=== PATIENT | female | born 1990 | race Caucasian/White ===

== ENCOUNTER 2021-02-26 08:00 | Outpatient (CLI) | payer OTHER ==
[2021-02-26 15:34] LABS: MUDS CUTOFF CONCENTRATIONS CUTOFF CONC BELOW:
[2021-02-26 15:41] LABS: BILIRUBIN,URINE NEGATIVE (NEGATIVE); CLARITY,URINE CLEAR (CLEAR); GLUCOSE, URINE (UA) NEGATIVE (NEGATIVE); KETONES,URINE (UA) NEGATIVE (NEGATIVE); LEUKOCYTE ESTERASE, URINE NEGATIVE (NEGATIVE); NITRITE,URINE NEGATIVE (NEGATIVE); OCCULT BLOOD,URINE NEGATIVE (NEGATIVE); PROTEIN,URINE NEGATIVE (NEGATIVE); UROBILINOGEN,URINE 0.2 (NORMAL) E.U./dL (NORMAL)
[2021-02-26 15:44] LABS: BACTERIA,URINE None Seen /HPF (None Seen); RBC,URINE 0-5 /HPF (0-5); SQUAMOUS EPITHELIAL CELL,UR RARE Squamous (<= Few); WBC,URINE 0-3 /HPF (0-5)
[2021-02-26 15:49] LABS: AMPHETAMINE SCREEN,URINE NEGATIVE (NEGATIVE); BARBITURATE SCREEN,UR NEGATIVE (NEGATIVE); BENZODIAZEPINES SCREEN, URINE NEGATIVE (NEGATIVE); COCAINE SCREEN URINE NEGATIVE (NEGATIVE); METHADONE SCREEN, URINE NEGATIVE (NEGATIVE); METHAMPHETAMINES SCREEN, URINE NEGATIVE (NEGATIVE); OPIATE SCREEN, URINE NEGATIVE (NEGATIVE); OXYCODONE SCREEN, URINE NEGATIVE (NEGATIVE); PROPOXYPHENE SCREEN, URINE NEGATIVE (NEGATIVE); THC CANNABINOID SCREEN, URINE NEGATIVE (NEGATIVE); TRICYCLIC ANTIDEPRESSANT,URINE NEGATIVE (NEGATIVE)
== END 2021-02-26 23:59 | disposition home or self-care (01) ==
LOC: LAB.WC 08:00
PROVIDERS: ATTEND Nurse Practitioner Obstetrics & Gynecology
DX: Z32.01 Encounter for pregnancy test, result positive (principal)
CPT/HCPCS: 80306; 81001; 87086

== ENCOUNTER 2021-03-13 18:40 | Outpatient (CLI) | payer OTHER ==
[2021-03-13 19:56] LABS: BASOPHILS % (AUTO) 0.4 %; EOSINOPHILS # (AUTO) 0.2 10^3/uL (0.0-0.7); EOSINOPHILS % (AUTO) 1.5 %; HCT - HEMATOCRIT 36.2 % (37.0-47.0); HGB - HEMOGLOBIN 12.3 g/dL (12.0-16.0); LYMPHOCYTES # (AUTO) 1.9 10^3/uL (1.5-3.5); LYMPHOCYTES % (AUTO) 18.9 %; MEAN CORPUSCULAR HEMOGLOBIN 30.4 pg (27.0-31.0); MEAN CORPUSCULAR VOLUME 89.6 fL (81.0-99.0); MEAN PLATELET VOLUME 11.1 fL (7.9-10.8); MONOCYTES # (AUTO) 0.4 10^3/uL (0.0-1.0); MONOCYTES % (AUTO) 4.1 %; NEUTROPHILS # (AUTO) 7.4 10^3/uL (1.5-6.6); NEUTROPHILS % (AUTO) 74.7 %; PLT - PLATELET COUNT 234 10^3/uL (130-450); RED BLOOD COUNT 4.04 10^6/uL (4.20-5.40); RED CELL DISTRIBUTION WIDTH 12.3 % (12.0-15.0); WHITE BLOOD COUNT 9.9 x10^3/uL (4.8-10.8)
--- NOTE | 2021-03-14 09:12 | Ultrasound Report ---
PROCEDURE: OB First Trimester INDICATIONS: +PREG TEST OUTSIDE/PRIOR DATING DATA: Last menstrual period (LMP): 01/06/2021. LMP-based estimated date of delivery (EVER): 10/13/2020. First dating scan (date and location): 03/13/2021. RICHY Estimated date of delivery (EVER) from first dating scan: 10/14/2020. The below data below was generated using the initial ultrasound EVER of 10/14/2020 TECHNIQUE: Real-time scanning was performed of the fetus and maternal pelvic organs, with image documentation. COMPARISON: None FINDINGS: Embryo: A live single intrauterine is present. Mean gestational sac diameter = 4.26 cm cor responding with 9 weeks 6 days. [place]-rump length = 2.58 cm corresponding with 9 weeks 2 days. Compos ite gestational age today = 9 weeks 2 days. Measurement variability in dating: +/- 4 weeks by LMP, +/- 7 days by mean sac diameter (use before 6 weeks gestation if crown-rump length not able to be measured), +/- 5 days by crown-rump length (6-12 weeks gestation). Maternal organs: Ovaries demonstrate a right corpus luteal cyst. IMPRESSION: Live single intrauterine with a composite gestational age of 9 weeks 2 days. Reviewed by: Brad Blair on 03/14/2021 9:11 AM PDT Approved by: Brad Blair on 03/14/2021 9:11 AM PDT Station ID: [id number]
[2021-03-18 10:10] LABS: HEPATITIS B SURFACE ANTIGEN NON-REACTIVE
[2021-03-18 10:13] LABS: HEPATITIS C ANTIBODY NON-REACTIVE
== END 2021-03-13 18:41 | disposition home or self-care (01) ==
LOC: DI 18:40
PROVIDERS: ATTEND Nurse Practitioner Obstetrics & Gynecology
DX: Z36.89 Encounter for other specified antenatal screening (principal)
CPT/HCPCS: 36415; 85025; 86592; 86762; 86787; 86803; 86850; 86900; 86901; 87340; 87389

== ENCOUNTER 2021-03-18 08:00 | Outpatient (CLI) | payer OTHER ==
[2021-03-18 21:47] LABS: CHLAMYDIA TRACHOMATIS DNA NEGATIVE (NEGATIVE); NEISSERIA GONORRHOEAE DNA NEGATIVE (NEGATIVE); TRICHOMONAS VAGINALIS DNA NEGATIVE (NEGATIVE)
== END 2021-03-18 23:59 | disposition home or self-care (01) ==
LOC: LAB.WC 08:00
PROVIDERS: ATTEND Advanced Practice Midwife
DX: Z11.3 Encounter for screening for infections with a predominantly sexual mode of transmission (principal)
CPT/HCPCS: 87491; 87591; 87661

== ENCOUNTER 2021-05-03 12:18 | Outpatient (CLI) | payer OTHER ==
[2021-05-07 04:01] LABS: AGE RISK DOWN SYNDROME 1 IN 721; CALC'D GESTATIONAL AGE 16.7 weeks; CIGARETTE SMOKER? NOT GIVEN; DONOR AGE: EGG RETRIEVAL NOT GIVEN; DONOR EGG NO; ESTRIOL MOM 0.85; HCG MOM 0.96; HX OF NEURAL TUBE DEFECTS NO; INHIBIN A MOM 0.98; INSULIN DEPEND DIABETIC NO; MATERNAL WEIGHT 101 lbs; MSS DOWN SYNDROME RISK <1 IN 5000; MSS3 TRISOMY 18 RISK <1 IN 5000; NUMBER OF FETUSES 1; PREV PREGNANCY DOWN SYND NO; RISK FOR ONTD 1 IN 1010
== END 2021-05-03 12:19 | disposition home or self-care (01) ==
LOC: LAB 12:18
PROVIDERS: ATTEND Advanced Practice Midwife
DX: Z34.90 Encounter for supervision of normal pregnancy, unspecified, unspecified trimester (principal); Z36.0 Encounter for antenatal screening for chromosomal anomalies
CPT/HCPCS: 81511

== ENCOUNTER 2021-05-26 08:45 | Outpatient (CLI) | payer OTHER ==
--- NOTE | 2021-05-26 10:32 | Ultrasound Report ---
PROCEDURE: OB Detailed Eval INDICATIONS: SUPERVISION OF NORMAL OUTSIDE/PRIOR DATING DATA: Last menstrual period (LMP): 01/06/2021. LMP-based estimated date of delivery (EVER): 10/13/2021. First dating scan (date and location): 03/13/2021. Estimated date of delivery (EVER) from first dating scan: 10/14/2021. The below data below was generated using the ultrasound EVER of 10/14/2021 TECHNIQUE: Real-time scanning was performed of the fetus, with image documentation and biometric measurements. COMPARISON: 03/13/2021 FINDINGS: General: A single live intrauterine gestation is present. Presentation: Variable Placenta: Placental position is posterior, without previa. Amniotic fluid index: 19.2 cm, within normal limits for gestational age. heart rate: 160 beats per minute. Maternal cervical canal: 4.2 cm long; normal length is 2.5 cm or more. biometrics: Biparietal diameter: 4.6 cm equals 20 weeks 0 days Head circumference: 17 cm equals 19 weeks 4 days Abdominal circumference: 14.6 cm equals 19 weeks 6 days Femur length: 2.8 cm equals 18 weeks 4 days Estimated gestational age from initial scan: 19 weeks 6 days. Composite gestational age from present scan: 19 weeks 3 days Estimated weight and percentile: 287 g, 20th percentile Anatomic survey: Neuro: Ventricles are normal at less than 10 mm. Cisterna magna is normal at 3-11 mm. Cerebellum i s normal in size and morphology. Nuchal skin fold: Normal at less than 6 mm between 14 and 20 weeks gestational age. Face: Nose and lips, facial profile are normal. Spine: No evidence for spina bifida. Heart: 4-chambered heart is present, with normal ventricular outflow tracts. Diaphragm: Diaphragm is intact. Stomach: Left-sided stomach is present. Kidneys: No hydronephrosis. Normal is less than 5 mm in 2nd trimester, less than 7 mm in 3rd trimester. Cord: 3 vessel cord has orthotopic insertion. Bladder: Normal in size. Extremities: All 4 extremities are visualized. An apparent right ovarian corpus luteum can be seen and measures up to 1.3 cm. IMPRESSION: Single live intrauterine . Normal interval growth compared to the prior ultrasound examination. No anatomic abnormalities are identified. Reviewed by: Jarvis Baldwin MD on 05/26/2021 9:31 AM STAR Approved by: Jarvis Baldwin MD on 05/26/2021 9:31 AM STAR Station ID: [id number]
== END 2021-05-26 08:46 | disposition home or self-care (01) ==
LOC: DI 08:45
PROVIDERS: ATTEND Advanced Practice Midwife
DX: Z34.02 Encounter for supervision of normal first pregnancy, second trimester (principal); Z36.89 Encounter for other specified antenatal screening

== ENCOUNTER 2021-07-16 08:00 | Outpatient (CLI) | payer OTHER ==
[2021-07-17 12:03] LABS: BILIRUBIN,URINE NEGATIVE (NEGATIVE); GLUCOSE, URINE (UA) NEGATIVE (NEGATIVE); KETONES,URINE (UA) NEGATIVE (NEGATIVE); LEUKOCYTE ESTERASE, URINE NEGATIVE (NEGATIVE); NITRITE,URINE NEGATIVE (NEGATIVE); OCCULT BLOOD,URINE NEGATIVE (NEGATIVE); PROTEIN,URINE NEGATIVE (NEGATIVE); UROBILINOGEN,URINE 0.2 (NORMAL) E.U./dL (NORMAL)
[2021-07-17 12:06] LABS: CLARITY,URINE CLEAR (CLEAR)
[2021-07-17 12:43] LABS: BACTERIA,URINE Rare /HPF (None Seen); RBC,URINE None Seen /HPF (0-5); SQUAMOUS EPITHELIAL CELL,UR NONE SEEN (<= Few); WBC,URINE 0-3 /HPF (0-5)
== END 2021-07-16 23:59 | disposition home or self-care (01) ==
LOC: LAB 08:00
PROVIDERS: ATTEND Nurse Practitioner Obstetrics & Gynecology
DX: R30.0 Dysuria (principal)
CPT/HCPCS: 81001; 87086

== ENCOUNTER 2021-07-24 11:31 | Outpatient (CLI) | payer OTHER ==
[2021-07-24 12:45] LABS: HCT - HEMATOCRIT 34.7 % (37.0-47.0); HGB - HEMOGLOBIN 11.5 g/dL (12.0-16.0); MEAN CORPUSCULAR HEMOGLOBIN 31.2 pg (27.0-31.0); MEAN CORPUSCULAR HGB CONC 33.1 g/dL (32.0-36.0); MEAN PLATELET VOLUME 11.4 fL (7.9-10.8); RED BLOOD COUNT 3.69 10^6/uL (4.20-5.40); RED CELL DISTRIBUTION WIDTH 13.1 % (12.0-15.0); WHITE BLOOD COUNT 10.1 x10^3/uL (4.8-10.8)
== END 2021-07-24 11:32 | disposition home or self-care (01) ==
LOC: LAB 11:31
PROVIDERS: ATTEND Nurse Practitioner Obstetrics & Gynecology
DX: Z34.90 Encounter for supervision of normal pregnancy, unspecified, unspecified trimester (principal); Z36.89 Encounter for other specified antenatal screening
CPT/HCPCS: 36415; 82950; 85027

== ENCOUNTER 2021-08-13 08:00 | Outpatient (CLI) | payer OTHER | END 2021-08-13 23:59 | disposition home or self-care (01) | LOC: LAB.WC 08:00 | PROVIDERS: ATTEND Nurse Practitioner Obstetrics & Gynecology | DX: O99.891 Other specified diseases and conditions complicating pregnancy (principal); R10.2 Pelvic and perineal pain | CPT/HCPCS: 87086 ==

== ENCOUNTER 2021-08-13 17:59 | Outpatient (CLI) | payer OTHER ==
[2021-08-13 18:54] LABS: BILIRUBIN,URINE NEGATIVE (NEGATIVE); GLUCOSE, URINE (UA) NEGATIVE (NEGATIVE); KETONES,URINE (UA) 40 mg/dL (NEGATIVE); LEUKOCYTE ESTERASE, URINE NEGATIVE (NEGATIVE); NITRITE,URINE NEGATIVE (NEGATIVE); OCCULT BLOOD,URINE SMALL (NEGATIVE); PROTEIN,URINE NEGATIVE (NEGATIVE); UROBILINOGEN,URINE 0.2 (NORMAL) E.U./dL (NORMAL)
--- NOTE | 2021-08-13 18:58 | PROVIDER PROGRESS NOTE ---
- HPI Chief Complaint: Vaginal bleeding (She presents with complaints of vaginal bleeding which started approximately 1 hour prior to presentation. She reports she was holding her child when she noticed blood similar to a "light period". She denies contractions. She denies leakage of fluid. She has not had vaginal bleeding prior previously) Current : Current EDU 10/13/21 Gestation 31 Weeks and 2 Days 3 Para 2 Vital Signs Temperature 98.8 F 08/13/21 18:12 Heart Rate 80 08/13/21 18:12 Respiratory Rate 16 08/13/21 18:12 Blood Pressure 110/76 08/13/21 18:12 Temperature 98.8 F 08/13/21 18:20 Heart Rate 80 08/13/21 18:20 Respiratory Rate 16 08/13/21 18:20 Blood Pressure 110/76 08/13/21 18:20 O2 Saturation 100 08/13/21 18:20 - Exam Generalno acute distress Abdomen soft nontender gravid Sterile speculum exam. Cervix visibly closed. Yellowish pink-tinged mucus-like discharge noted from the cervical os. - Procedures OB Procedure Performed: NST NST Procedure: NST Procedure Start Date 08/13/21 Start Time 18:08 Vibroacoustic Stimulation Used No Patient States Movement Yes Service Date of procedure: 08/13/21 Findings: baseline 150 bpm, moderate variability, accelerations 15 x 15, no decelerations contractions noted every 3 to 5 minutes. - Plan Plan: Past medical historynone Past surgical historynone 31-year-old G3, P2 at 31 weeks 2 days who presents with complaints of vaginal bleeding 1. Vaginal bleeding. Start speculum exam with yellowish mucus-like pink-tinged discharge. Consistent with infectious process. Wet prep and gonorrhea chlamydia swab sent. No active bleeding noted. Cervix visibly closed. Ul trasound ordered. O+ 2. contractions. Cervix visibly closed. Transvaginal cervical length ordered. Will start BMZ series. I/V fluids ordered. CBC. We will continue to monitor. Addendum: Ulltrasound showed placental lakes as well as a area of soft tissue in the anterior aspect of the endometrium. MFM was consulted. Discuss[facility] She recommends the following: Discharge with pelvic rest, modified bedrest and ER precautions. Patient was given betamethasone. Recommends completion of series. Will have patient return tomorrow for second betamethasone shot. Gonorrhea and committee test sent and pending. Wet prep consistent with bacterial vaginosis Flagyl Rx sent.
[2021-08-13 19:02] LABS: BACTERIA,URINE None Seen /HPF (None Seen); CLARITY,URINE CLEAR (CLEAR); RBC,URINE 0-5 /HPF (0-5); SQUAMOUS EPITHELIAL CELL,UR RARE Squamous (<= Few); WBC,URINE 0-3 /HPF (0-5)
[2021-08-13 19:20] LABS: RUPTURE OF MEMBRANES PLUS NEGATIVE (NEGATIVE)
[2021-08-13] MEDS ORDERED: BETAMETHASONE 30 MG/5 ML VIAL IM ONE (19:34)
[2021-08-13] MEDS ORDERED: LACTATED RINGERS 500 ML IV ONE (19:36)
[2021-08-13 20:30] LABS: BASOPHILS % (AUTO) 0.2 %; EOSINOPHILS # (AUTO) 0.2 10^3/uL (0.0-0.7); HCT - HEMATOCRIT 35.7 % (37.0-47.0); HGB - HEMOGLOBIN 11.7 g/dL (12.0-16.0); LYMPHOCYTES # (AUTO) 2.1 10^3/uL (1.5-3.5); LYMPHOCYTES % (AUTO) 16.9 %; MEAN CORPUSCULAR HEMOGLOBIN 30.7 pg (27.0-31.0); MEAN CORPUSCULAR HGB CONC 32.8 g/dL (32.0-36.0); MEAN CORPUSCULAR VOLUME 93.7 fL (81.0-99.0); MEAN PLATELET VOLUME 11.9 fL (7.9-10.8); MONOCYTES # (AUTO) 0.6 10^3/uL (0.0-1.0); MONOCYTES % (AUTO) 4.6 %; NEUTROPHILS # (AUTO) 9.2 10^3/uL (1.5-6.6); NEUTROPHILS % (AUTO) 76.1 %; PLT - PLATELET COUNT 172 10^3/uL (130-450); RED BLOOD COUNT 3.81 10^6/uL (4.20-5.40); RED CELL DISTRIBUTION WIDTH 13.4 % (12.0-15.0); WHITE BLOOD COUNT 12.1 x10^3/uL (4.8-10.8)
[2021-08-13 21:50] LABS: CHLAMYDIA TRACHOMATIS DNA NEGATIVE (NEGATIVE); NEISSERIA GONORRHOEAE DNA NEGATIVE (NEGATIVE); TRICHOMONAS VAGINALIS DNA NEGATIVE (NEGATIVE)
[2021-08-13 22:00] VITALS: BP 112/76
--- NOTE | 2021-08-13 22:13 | Ultrasound Report ---
PROCEDURE: OB Limited INDICATIONS: vaginal bleeding OUTSIDE/PRIOR DATING DATA: Last menstrual period (LMP): 01/06/2021. LMP-based estimated date of delivery (EVER): 10/13/2020. First dating scan (date and location): 03/13/2021. Estimated date of delivery (EVER) from first dating scan: 10/14/2021. The below data below was generated using the ultrasound derived EVER of 10/14/2021. TECHNIQUE: Real-time scanning was performed of the fetus, with image documentation. COMPARISON: 05/26/2021, 03/13/2021. FINDINGS: A single living intrauterine gestation is present. Presentation: Vertex Placenta: Placental position is posterior, without previa. Amniotic fluid index: 18.5 cm, within normal limits for gestational age. Largest pocket measures 6.2 cm. heart rate: 152 beats per minutes. Maternal cervical canal: 4.1 cm long; normal length is 2.5 cm or more. Estimated gestational age from initial scan: 31 weeks 1 day. There are a few hypoechoic collections within the placenta consistent with venous lakes. No definite periplacental fluid collections to suggest abruption. Along the ventral uterine wall, there are 2 adjacent lobulated masslike lesions contiguous with the m yometrium indenting on the gestational sac. These measure up to 3.1 x 2.2 x 3.2 cm and 3.8 x 1.9 x 5. 6 cm. These are heterogeneous in appearance with internal hypoechoic regions. IMPRESSION: 1. Single living intrauterine demonstrated in vertex position. 2. Cervix appears closed. 3. Amniotic fluid index within normal limits. 4. No periplacental fluid collections to suggest abruption. 5. Lobulated masslike lesions along the positional sac anteriorly contiguous with the myometrium. The findings are nonspecific and the differential includes uterine fibroids or sequelae of a prior gesta tional hemorrhage among other etiologies. Recommend short-term follow-up ultrasound to demonstrate st ability. Reviewed by: Robert Forrest MD on 08/13/2021 10:12 PM PST Approved by: Robert Forrest MD on 08/13/2021 10:12 PM PST Station ID: [id number]
== END 2021-08-13 21:35 | disposition home or self-care (01) ==
LOC: WFO 17:59 → FBP 18:01 → WFO 21:35
PROVIDERS: ATTEND Obstetrics & Gynecology
DX: O43.893 Other placental disorders, third trimester (principal); Z3A.31 31 weeks gestation of pregnancy; O99.891 Other specified diseases and conditions complicating pregnancy; N89.8 Other specified noninflammatory disorders of vagina; R10.2 Pelvic and perineal pain
CPT/HCPCS: 36415; 59025; 76815; 81001; 84112; 85025; 87086; 87210; 87491; 87591; 87661; 96360; 96372; 99214; J7120; 87081

== ENCOUNTER 2021-08-14 19:58 | Outpatient (CLI) | payer OTHER ==
[2021-08-14] MEDS ORDERED: BETAMETHASONE 30 MG/5 ML VIAL IM ONE ×2 (20:09→20:33)
--- NOTE | 2021-08-14 20:27 | PROVIDER PROGRESS NOTE ---
- HPI Chief Complaint: Other (Patient presents for follow-up of her vaginal bleeding. She reports her bleeding has now essentially resolved with just brownish discharge. She denies contractions or leakage of fluid. She notes positive movement. She does report a headache earlier today which resolved with Tylenol.) Current : 31 weeks 3 days - Procedures OB Procedure Performed: NST Diagnosis/Indication for NST: Other (Vaginal bleeding in ) NST Procedure: NST Procedure Start Time 2023 Stop Time 2045 baseline 140, accelerations 10x10 , no decelerations, rare contractions( 1 in 20 mins) NST reactive and reassuring. Service Date of procedure: 08/14/21 - Plan Plan: 31-year-old G3, P2 at 31 weeks 2 days who presents for follow-up of vaginal bleeding. 1. Vaginal bleeding- resolved. Gonorrhea and Chlamydia were negative. On Flagyl for BV. Betamethasone No. 2 given today. Of note - Ulltrasound showed placental lakes as well as a area of soft tissue in the anterior aspect of the endometrium. MFM was consulted. Discussed with Dr. Agnieszka Jane with [facility]. She recommends the following: Discharge with pelvic rest, modified bedrest and ER precautions. Patient was given betamethasone. Recommends completion of series.
[2021-08-14 20:52] VITALS: BP 116/72
== END 2021-08-14 21:05 | disposition home or self-care (01) ==
LOC: FBP 19:58 → UNDOADMIN 19:58 → WFO 19:58 → UNDODISIN 21:05 → EDSTATUS 08-16 16:17
PROVIDERS: ATTEND Obstetrics & Gynecology
DX: O46.93 Antepartum hemorrhage, unspecified, third trimester (principal); O23.593 Infection of other part of genital tract in pregnancy, third trimester; B96.89 Other specified bacterial agents as the cause of diseases classified elsewhere; O43.893 Other placental disorders, third trimester; Z3A.31 31 weeks gestation of pregnancy
CPT/HCPCS: 59025; 96372; 99213

== ENCOUNTER 2021-08-27 14:58 | Outpatient (CLI) | payer OTHER ==
--- NOTE | 2021-08-27 16:59 | Ultrasound Report ---
PROCEDURE: OB F/U or Repeat INDICATIONS: THIRD TRIMESTER VAGINAL BLEEDING OUTSIDE/PRIOR DATING DATA: Last menstrual period (LMP): 01/06/2021. LMP-based estimated date of delivery (EVER): 10/13/2020. First dating scan (date and location): 03/13/2021. Estimated date of delivery (EVER) from first dating scan: 10/14/2021. TECHNIQUE: Real-time scanning was performed of the fetus, with image documentation and biometric measurements. Endovaginal scanning: No COMPARISON: None. FINDINGS: General: A single living intrauterine gestation is present. Presentation: Vertex Placenta: Placental position is posterior, without previa. Amniotic fluid index: 18.9 cm heart rate: 143 beats per minute. Maternal cervical canal: 3 cm long; normal length is 2.5 cm or more. No change in nonspecific soft tissue lobulated focus within the anterior uterine wall measuring 6.8 x 3.6 x 4.1 cm. biometrics: Biparietal diameter: 74 mm; 29 weeks 5 days Head circumference: 27 mm; 31 weeks 4 days Abdominal circumference: 279 mm; 32 weeks 0 days Femur length: 57 mm; 30 weeks 2 days Estimated gestational age from initial scan: 33 weeks 1 day Composite gestational age from present scan: 30 weeks 6 days Estimated weight and percentile: 1723 g, which is at the 5th percentile for gestational age Measurement variability in biometric dating: +/- 10 days from 12-20 weeks gestation, +/- 2 weeks from 20-30 weeks gestation, +/- 3 weeks at 30 weeks gestation or more. Other: Survey of anatomy currently includes normal chest/diaphragm, stomach/abdomen, bilateral renal regions, and urinary bladder/pelvis. IMPRESSION: 1. Single living intrauterine gestation. 2. Estimated weight is at the 5th percentile for gestational age. 3. No change in anterior uterine focus. Reviewed by: Jacqueline Almanza MD on 08/27/2021 4:57 PM PST Approved by: Jacqueline Almanza MD on 08/27/2021 4:57 PM PST Station ID: [id number]
== END 2021-08-27 14:59 | disposition home or self-care (01) ==
LOC: DI 14:58
PROVIDERS: ATTEND Nurse Practitioner Obstetrics & Gynecology
DX: O46.93 Antepartum hemorrhage, unspecified, third trimester (principal); Z3A.30 30 weeks gestation of pregnancy

== ENCOUNTER 2021-09-10 14:44 | Outpatient (CLI) | payer OTHER ==
--- NOTE | 2021-09-10 17:20 | PROCEDURE REPORT ---
- HPI Diagnosis/Indication for NST: Intrauterine growth restriction Vital Signs Temperature 36.9 C 09/10/21 15:04 Heart Rate 66 09/10/21 15:04 Respiratory Rate 16 09/10/21 15:04 Blood Pressure 124/80 09/10/21 15:04 Temperature 36.9 C 09/10/21 15:04 Heart Rate 66 09/10/21 15:04 Respiratory Rate 16 09/10/21 15:04 Blood Pressure 124/80 09/10/21 15:04 O2 Saturation - NST Procedure NST Procedure Start Time 20:23 Stop Time 20:45 - Results and Plan Findings/Impression: Gisselle presents to [facility] for NST and BPP with doppler and JASON secondary to suspected IUGR on last ultrasound with EFW measuring 5%tile. Her MFM consult has been initiated however she has not been able to schedule with them yet due to in surance barriers. Working with clinic RN to expedite this referral. NST performed 09/10/2021 NST read 09/10/2021 NST reactive. FHR baseline 140, moderate variability, + accels, no decels No contractions appreciated via tocometry BPP 03/12 for absence of respirations. JASON WNL @ 17.1 Cord Dopplers WNL. Assessment: 31yo @ 35.2wks gestation by LMP c/w 9.2wk U/S Suspected IUGR BPP 03/12 --05/14 (with NST) Hx preeclampsia - normotensive now and taking ASA daily. Plan: Pt released home with precautions. Will return this week for repeat NST and BPP. Will initiate twice weekly NSTs and BPP with JASON and cord dopplers and await further recommendations from MFM for surveillance and plan of care for timing of delivery. Pt verbalized understanding and agrees to above plan. She denies further questions or concerns at this time. FINAL DIAGNOSIS: Intrauterine growth restriction
--- NOTE | 2021-09-10 18:07 | Ultrasound Report ---
PROCEDURE: OB Biophysical Profile INDICATIONS: Small for gestational age fetus OUTSIDE/PRIOR DATING DATA: Last menstrual period (LMP): 01/06/2021. LMP-based estimated date of delivery (EVER): 10/13/2020. First dating scan (date and location): 03/13/2021. Estimated date of delivery (EVER) from first dating scan: 10/14/2021. The below data below was generated using the study generated EVER of 10/14/2021 TECHNIQUE: Real-time scanning was performed of the fetus, with image documentation and biometric saba surements. Biophysical profile was also obtained. COMPARISON: 08/13/2021, 08/27/2021. FINDINGS: General: A single living intrauterine gestation is present. Presentation: Vertex Placenta: Placental position is posterior, without previa. Amniotic fluid index: 17.6 cm, normal for gestational age. heart rate: 126 beats per minute. Maternal cervical canal: 3.54 cm long; normal length is 2.5 cm or more. Estimated gestational age from initial scan: 35 weeks, 1 day Biophysical profile: Tone: 2 points. Movement: 2 points. Respiration: 0 points. Largest pocket of fluid: 2 points. IMPRESSION: 1. Single live anterior with fetus in vertex presentation. heart rate is 126 bpm. [place] amount of amniotic fluid. 2. biophysical profile score measures 6 out of 8 with no convincing respiration is seen d uring the study. Reviewed by: Huey Blankenship MD on 09/10/2021 6:05 PM PST Approved by: Huey Blankenship MD on 09/10/2021 6:05 PM PST Station ID: [id number]
[2021-09-10 18:57] VITALS: BP 124/80
== END 2021-09-10 17:32 | disposition home or self-care (01) ==
LOC: WFO 14:44 → FBP 14:45 → WFO 17:32
PROVIDERS: ATTEND Nurse Practitioner Obstetrics & Gynecology
DX: O36.5930 Maternal care for other known or suspected poor fetal growth, third trimester, not applicable or unspecified (principal); Z3A.35 35 weeks gestation of pregnancy; Z87.59 Personal history of other complications of pregnancy, childbirth and the puerperium; Z79.82 Long term (current) use of aspirin
CPT/HCPCS: 59025; 99214

== ENCOUNTER 2021-09-17 13:45 | Outpatient (CLI) | payer OTHER | END 2021-09-17 23:59 | disposition home or self-care (01) | LOC: LAB 13:45 | PROVIDERS: ATTEND Nurse Practitioner Obstetrics & Gynecology | DX: Z36.85 Encounter for antenatal screening for Streptococcus B (principal) | CPT/HCPCS: 87797 ==

== ENCOUNTER 2021-09-17 14:20 | Outpatient (CLI) | payer OTHER ==
--- NOTE | 2021-09-17 16:54 | Ultrasound Report ---
PROCEDURE: OB Biophysical Profile INDICATIONS: FETUS SMALL FOR GESTATIONAL AGE OUTSIDE/PRIOR DATING DATA: Last menstrual period (LMP): 01/06/2021. LMP-based estimated date of delivery (EVER): 10/13/2020. First dating scan (date and location): 03/13/2021. Estimated date of delivery (EVER) from first dating scan: 10/14/2020. The below data below was generated using the ultrasound generated EVER of 10/14/2020 TECHNIQUE: Real-time scanning was performed of the fetus, with image documentation and biometric saba surements. Biophysical profile was also obtained. Endovaginal scanning: Not performed COMPARISON: Prior sonographic exams, most recent 09/10/2021 FINDINGS: General: A single living intrauterine gestation is present. Presentation: Vertex Placenta: Placental position is posterior, without previa. Amniotic fluid index: 20.6 cm. heart rate: 135 beats per minute. Maternal cervical canal: 3.6 cm long; normal length is 2.5 cm or more. Biophysical profile: Tone: 2 points. Movement: 2 points. Respiration: 2 points. Largest pocket of fluid: 2 points. Largest pocket is 6.5 cm. Cord Doppler systolic/diastolic ratios: 2.7 near the placenta, 3.1 and the mid segment, and 2.6 at th e umbilicus. IMPRESSION: Single live intrauterine gestation. Estimated date of delivery is 10/14/2020. heart rate 1 35 bpm. Amniotic fluid index 20.6 cm. Biophysical profile 8/8. Normal cord systolic/diastolic ratios. Reviewed by: Eliud Mac MD on 09/17/2021 4:53 PM PST Approved by: Eliud Mac MD on 09/17/2021 4:53 PM PST Station ID: [id number]
== END 2021-09-17 14:21 | disposition home or self-care (01) ==
LOC: DI 14:20
PROVIDERS: ATTEND Nurse Practitioner Obstetrics & Gynecology
DX: O36.5990 Maternal care for other known or suspected poor fetal growth, unspecified trimester, not applicable or unspecified (principal); Z3A.00 Weeks of gestation of pregnancy not specified

== ENCOUNTER 2021-09-17 14:42 | Outpatient (CLI) | payer OTHER ==
[2021-09-17 15:02] VITALS: BP 118/79
--- NOTE | 2021-09-17 16:17 | PROCEDURE REPORT ---
- HPI Diagnosis/Indication for NST: Other (IUGR) Current EDU 10/13/21 Gestation 36 Weeks and 2 Days 3 Para 2 Vital Signs Temperature 97.7 F 09/17/21 14:35 Heart Rate 83 09/17/21 14:35 Respiratory Rate 17 09/17/21 14:35 Blood Pressure 118/79 09/17/21 14:35 O2 Saturation 100 09/17/21 14:35 Temperature 97.7 F 09/17/21 14:35 Heart Rate 83 09/17/21 14:35 Respiratory Rate 17 09/17/21 14:35 Blood Pressure 118/79 09/17/21 14:35 O2 Saturation 100 09/17/21 14:35 - NST Procedure NST Procedure Start Date 09/17/21 Start Time 14:31 Stop Time 15:32 Vibroacoustic Stimulation Used No Patient States Movement Yes - Results and Plan Findings/Impression: heart rate baseline-140 beats per minutes Moderate variability Accelerations- 15x15 Decelerations none Contractions - rare NST reactive and reassuring BBP 05/12
== END 2021-09-17 16:30 | disposition home or self-care (01) ==
LOC: WFO 14:42 → FBP 14:46 → WFO 16:30
PROVIDERS: ATTEND Obstetrics & Gynecology
DX: O36.5930 Maternal care for other known or suspected poor fetal growth, third trimester, not applicable or unspecified (principal); Z3A.36 36 weeks gestation of pregnancy; Z36.85 Encounter for antenatal screening for Streptococcus B
CPT/HCPCS: 59025; 87797

== ENCOUNTER 2021-09-24 14:13 | Outpatient (CLI) | payer OTHER ==
[2021-09-24 14:34] VITALS: BP 115/80
--- NOTE | 2021-09-24 15:19 | PROCEDURE REPORT ---
- HPI Diagnosis/Indication for NST: Intrauterine growth restriction Current EDU 10/13/21 Gestation 37 Weeks and 2 Days 3 Para 2 Vital Signs Temperature 98.4 F 09/24/21 14:26 Heart Rate 86 09/24/21 14:26 Respiratory Rate 16 09/24/21 14:26 Blood Pressure 118/86 H 09/24/21 14:26 Temperature 98.4 F 09/24/21 14:32 Heart Rate 78 09/24/21 14:32 Respiratory Rate 16 09/24/21 14:32 Blood Pressure 115/80 09/24/21 14:33 O2 Saturation - NST Procedure NST Procedure Start Date 09/24/21 Start Time 14:22 Stop Time 15:01 Vibroacoustic Stimulation Used No Patient States Movement Yes - Results and Plan Findings/Impression: Patient is a at 37 weeks 2 days gestation here for scheduled NST. NST Performed 09/24/2021 NST Read 10/04/2021 FHT: 135 beats per baseline, moderate variability, accelerations present, no decelerations. [place]: 8 minutes. Diagnosis 37 weeks gestation IUGR Reactive NST
== END 2021-09-24 14:45 | disposition home or self-care (01) ==
LOC: WFO 14:13 → FBP 14:17 → WFO 14:45
PROVIDERS: ATTEND Obstetrics & Gynecology
DX: O36.5930 Maternal care for other known or suspected poor fetal growth, third trimester, not applicable or unspecified (principal); Z3A.37 37 weeks gestation of pregnancy
CPT/HCPCS: 59025

== ENCOUNTER 2021-09-24 14:55 | Outpatient (CLI) | payer OTHER ==
--- NOTE | 2021-09-24 21:01 | Ultrasound Report ---
PROCEDURE: OB Biophysical Profile INDICATIONS: FETUS SMALL FOR GESTATIONAL AGE OUTSIDE/PRIOR DATING DATA: Last menstrual period (LMP): 01/06/2021. LMP-based estimated date of delivery (EVER): 10/13/2021. First dating scan (date and location): 03/13/2021. Estimated date of delivery (EVER) from first dating scan: 10/14/2021. The below data below was generated using the ultrasound generated EVER of 10/14/2021 TECHNIQUE: Real-time scanning was performed of the fetus, with image documentation and biometric saba surements. Biophysical profile was also obtained. Endovaginal scanning: Not performed COMPARISON: 09/17/2021, 09/10/2021, 08/27/2021 FINDINGS: General: A single living intrauterine gestation is present. Presentation: Vertex Placenta: Placental position is posterior, without previa. Amniotic fluid index: 15.8 cm, normal for gestational age. heart rate: 131 beats per minute. Estimated gestational age from initial scan: 37 weeks 1 day. Biophysical profile: Tone: 2 points. Movement: 2 points. Respiration: 0 points. Largest pocket of fluid: 2 points (4.6 cm). Umbilical artery Doppler: 1.6 at the placenta (not well seen due to posterior placental position), 3 .1 at the mid segment, 3.8 at the umbilicus. IMPRESSION: Single live intrauterine gestation. Normal amniotic fluid index. Biophysical profile score 6/8 with no convincing respirations identified by the central supply tech. Umbilical artery Doppler ratios as described above. Reviewed by: Eliud Mac MD on 09/24/2021 9:00 PM PST Approved by: Eliud Mac MD on 09/24/2021 9:00 PM PST Station ID: [id number]
== END 2021-09-24 14:56 | disposition home or self-care (01) ==
LOC: DI 14:55
PROVIDERS: ATTEND Nurse Practitioner Obstetrics & Gynecology
DX: O36.5930 Maternal care for other known or suspected poor fetal growth, third trimester, not applicable or unspecified (principal); Z3A.37 37 weeks gestation of pregnancy

== ENCOUNTER 2021-09-25 21:29 | Outpatient (CLI) | payer OTHER | END 2021-09-25 21:30 | disposition critical access hospital (66) | LOC: EMS 21:29 | DX: Z34.80 Encounter for supervision of other normal pregnancy, unspecified trimester (principal) | CPT/HCPCS: A0425; A0429 ==

== ENCOUNTER 2021-09-25 21:51 | Inpatient (IN) | payer OTHER ==
[2021-09-25] MEDS ORDERED: OXYTOCIN/SODIUM CHLORIDE 500 ML IV ONE (22:06)
[2021-09-25] MEDS ORDERED: miSOPROStoL 200 MCG TABLET ONE (22:06)
[2021-09-25] MEDS ORDERED: OXYTOCIN 10 UNIT/ML VIAL ONE (22:12)
[2021-09-25] MEDS ORDERED: SIMETHICONE CHEW 80 MG TABLET PO PRN (22:15)
[2021-09-25] MEDS ORDERED: TRANEXAMIC ACID IN NACL 1,000 MG/100 ML BAG IV PRN (22:16)
[2021-09-25] MEDS ORDERED: LIDOCAINE-MPF 1% 30 ML VIAL ID PRN (22:16)
[2021-09-25] MEDS ORDERED: KETOROLAC 30 MG/ML VIAL ONE (22:16)
[2021-09-25] MEDS ORDERED: miSOPROStoL 200 MCG TABLET PR ONE (22:16)
[2021-09-25] MEDS ORDERED: OXYTOCIN 10 UNIT/ML VIAL IM PRN (22:16)
[2021-09-25] MEDS ORDERED: TERBUTALINE 1 MG/ML VIAL SUBQ PRN (22:16)
[2021-09-25] MEDS ORDERED: SODIUM CHLORIDE FLUSH 0.9% 10 ML SYRINGE IVP PRN (22:16)
[2021-09-25] MEDS ORDERED: METHYLERGONOVINE 0.2 MG/ML VIAL IM PRN (22:16)
[2021-09-25] MEDS ORDERED: CARBOPROST TROMETHAMINE 250 MCG/ML AMP IM PRN (22:16)
[2021-09-25] MEDS ORDERED: OXYTOCIN/SODIUM CHLORIDE 500 ML IV PRN (22:16)
[2021-09-25] MEDS ORDERED: fentaNYL 100 MCG/2 ML VIAL IVP PRN (22:16)
--- NOTE | 2021-09-25 22:30 | HISTORY & PHYSICAL EXAMINATION ---
History and Physical - History and Physical HPI: 31-year-old G3 now P2 who presented at 37 weeks 3 days gestation who presented by EMS complaining of rupture of membranes. Membranes ruptured shortly before arrival. She was not complaining of pressure urgency, but after the bedside nurse checked and found to be complete, she began pushing involuntarily and delivered precipitously. Please see delivery note for details. All other symptoms reviewed and were negative except per HPI. Course LMP 01/06/2021 EVER by 9.2wk U/S 10/14/2020 (c/w LMP dating) FINAL EVER 10/13/2020 by LMP O pos/Rubella immune VZV:immune Genetic testing: Quad- NEGATIVE FAS: WNL. Posterior placenta, no previa. Size c/w dating EFW 20%tile. 3VC. 08/27/2021 f/u Placenta posterior without previa. No change in nonspecific soft tissue lobulated focus within the aneteior uterine wall measuring 6.8 x 3.6 x 4.1cm. EFW 5%tile. -MFM consult initiated secondary to concern for IUGR. Glucola 120 Influenza: 07/16/2021 TDAP: 07/16/2021 COVID-19 vaccine: 1st dose 06/28/21 GBS 09/17/2021 POSITIVE HSV: denies self and partner Breast pump Rx 07/16 MOD: . : Eliud. 9yo [place], 2.5yo [place]. pp contraception: pap: 07/2020-wnl per pt PMH Anxiety Migraines PSH Unremarkable OB History G3, P3 1. 01/14/2013, 39 weeks, , preeclampsia, 7 pounds 3 ounces 2. 09/12/2018, 37 weeks, , SROM, 6 pounds 3. Current SH Denies tobacco, alcohol, drugs Family History Mother: Arthritis Father: Drug abuse Maternal grandfather: Lung cancer Paternal grandmother: Colon cancer Allergies No known drug allergies Medications vitamins Citalopram Magnesium Low-dose aspirin Physical exam: Blood pressure 125/70, pulse 81, SPO2 100% General: Alert, oriented, no acute distress Head: Normal cephalic atraumatic Eyes: PERRLA, extraocular motions intact. Respiratory: Normal rate of respiration. No accessory muscle use, normal respiratory effort. Cardiovascular: Regular rate and rhythm Abdomen: Soft, nontender Extremities: Normal range of motion Neuro: Oriented x3. Normal movements Psych: Appropriate mood and affect. Normal judgment and insight Plan 31-year-old at 37 weeks 3 days gestation in term labor 1. Term labor: Admit to L&D, admit labs -Cervix found to be complete upon initial check with spontaneous rupture mem bransilvana. Patient precipitously delivered. See delivery note for details. 2. IUGR 3. Anxiety -Continue home Celexa
--- NOTE | 2021-09-25 22:37 | DELIVERY NOTE ---
Delivery Note - Labor Labor: positive: Spontaneous - Delivery Method Delivery Method: positive: Spontaneous vaginal delivery - Presentation Presentation: positive: Vertex - Nuchal Cord Nuchal Cord: positive: None - Anesthetic Anesthetic Type: - Amniotic Fluid Description Amniotic Fluid Description: positive: Clear - Episiotomy Type Episiotomy Type: positive: None - Laceration Laceration: positive: Labial (left) - Delivery Outcome Delivery Outcome: positive: Livebirth - [place]: positive: Placed in direct skin contact with mother, [place] used sex: positive: Female - Cord Cord: positive: 3 vessels - Placenta Placenta: positive: Intact - Estimated Blood Loss Estimated Blood Loss (in cc): 200 - Post Delivery Events Post Delivery Events: positive: No post delivery events - Delivery Comments (Free Text/Narrative) Delivery Comments (Free Text/Narrative): Preoperative Diagnoses 31-year-old G3, P2 37 weeks gestation Term labor/SROM IUGR Postoperative Diagnoses Same Delivered Delivery Summary: Patient arrived by EMS and was checked in triage found to be complete and grossly ruptured. Although she not feel the urge to push, she began pushing involuntarily and delivered precipitously in bed with the aid of the bedside nurse. Upon maternal pushing the head was delivered atraumatically followed by the anterior shoulder, posterior shoulder, then the remainder of the infant's body. A loose cord was wrapped around the shoulder. A female infant was delivered with APGARS of 8 at 1 minute and 9 at 5 minutes. The infant was placed on its mother's chest . After the cord finished pulsating, the umbilical cord was clamped times two and cut. 10 units of oxytocin were given IM as she did not have an IV. The placenta delivered intact with three vessel cord. Placenta was sent to pathology.. Uterine massage was performed until uterus was deemed firm. Upon inspection the perineum, a left labial laceration was noted and became hemostatic with pressure. Upon re-inspection the patient was hemostatic. Uterus again massaged and found to be firm. Needle and sponge counts were correct. Patient was stable and allowed to recover in L&D room. was stable and remained in room with mother. weight is pending at this time.
[2021-09-25] MEDS ORDERED: SODIUM CHLORIDE FLUSH 0.9% 10 ML SYRINGE IVP SCH (23:00)
[2021-09-25] MEDS ORDERED: LACTATED RINGERS 1,000 ML IV SCH ×2 (23:00)
[2021-09-25] MEDS ORDERED: KETOROLAC 30 MG/ML VIAL IVP SCH (23:00)
[2021-09-25 23:12] LABS: BASOPHILS # (AUTO) 0.1 10^3/uL (0.0-0.1); BASOPHILS % (AUTO) 0.3 %; EOSINOPHILS # (AUTO) 0.1 10^3/uL (0.0-0.7); HCT - HEMATOCRIT 38.3 % (37.0-47.0); HGB - HEMOGLOBIN 12.8 g/dL (12.0-16.0); LYMPHOCYTES # (AUTO) 1.3 10^3/uL (1.5-3.5); MEAN CORPUSCULAR HGB CONC 33.4 g/dL (32.0-36.0); MEAN CORPUSCULAR VOLUME 92.7 fL (81.0-99.0); MEAN PLATELET VOLUME 12.8 fL (7.9-10.8); MONOCYTES # (AUTO) 0.7 10^3/uL (0.0-1.0); MONOCYTES % (AUTO) 4.8 %; NEUTROPHILS # (AUTO) 12.4 10^3/uL (1.5-6.6); NEUTROPHILS % (AUTO) 84.6 %; PLT - PLATELET COUNT 156 10^3/uL (130-450); RED BLOOD COUNT 4.13 10^6/uL (4.20-5.40); RED CELL DISTRIBUTION WIDTH 14.6 % (12.0-15.0); WHITE BLOOD COUNT 14.6 x10^3/uL (4.8-10.8)
[2021-09-25] MEDS: ACETAMINOPHEN 500 MG TABLET PO SCH (23:23)
[2021-09-25] MEDS: DOCUSATE SODIUM 100 MG CAPSULE PO PRN (23:24)
[2021-09-26] MEDS: IBUPROFEN 600 MG TABLET PO SCH ×3 (05:29→17:03)
--- NOTE | 2021-09-26 07:53 | Discharge Plan ---
Discharge Plan Problem Reviewed?: Yes Disposition: Home, Self Care Condition: Good Diet: Regular Activity Restrictions: Additional Comments Shower Restrictions: No Driving Restrictions: No Instruction Topics: Vaginal After No Smoking: If you smoke, Please STOP! Call for help. Follow-up with: Kathleen Pope MD [Provider Admit Priv/Credential] -
--- NOTE | 2021-09-26 07:55 | PROVIDER PROGRESS NOTE ---
Subjective - Prog Note Date Prog Note Date: 09/26/21 Prog Note Time: 07:55 - Subjective Pt reports feeling: Improved Subjective: Subjective Patient reports she is doing well. Lochia appropriate. Denies heavy bleeding. Ambulating. Pelvic and abdominal pain well-controlled. Tolerating oral intake. Diet: Regular. Voiding without difficulty. Passing flatus. Denies BM. Patient is bonding with baby in room Breast feeding going well. Supplementing with formula Denies feeling lightheaded, dizzy or excessively fatigued. Objective General: Alert, oriented, no apparent distress. Cardiovascular: Regular rate. Regular rhythm. Lungs: No increased work of breathing. Abdomen: Uterus firm. Below umbilicus. Extremities: Normal pedal pulses. No edema. Assessment and Plan day 1. -Routine care -Anticipate discharge tomorrow Objective - Vital Signs/Intake & Output Vital Signs: Vital Signs x48h Temp Pulse Resp BP Pulse Ox 09/26/21 05:44 98.1 F 85 17 129/91 H 100 09/26/21 00:52 98.2 F 76 17 104/67 100 Intake & Output: Intake & Output 09/23/21 09/24/21 09/25/21 09/26/21 23:59 23:59 23:59 23:59 Intake Total 429.65 440 Output Total 0 150 Balance 429.65 290 - Lab Results Fish Bones: 09/25/21 23:04 Other Labs: Lab Results x24hrs 09/25/21 09/25/21 Range/Units 23:04 23:04 WBC 14.6 H (4.8-10.8) x10^3/uL RBC 4.13 L (4.20-5.40) 10^6/uL Hgb 12.8 (12.0-16.0) g/dL Hct 38.3 (37.0-47.0) % MCV 92.7 (81.0-99.0) fL MCH 31.0 (27.0-31.0) pg MCHC 33.4 (32.0-36.0) g/dL RDW 14.6 (12.0-15.0) % Plt Count 156 (130-450) 10^3/uL MPV 12.8 H (7.9-10.8) fL Neut # (Auto) 12.4 H (1.5-6.6) 10^3/uL Lymph # (Auto) 1.3 L (1.5-3.5) 10^3/uL [place] # (Auto) 0.7 (0.0-1.0) 10^3/uL Eos # (Auto) 0.1 (0.0-0.7) 10^3/uL Baso # (Auto) 0.1 (0.0-0.1) 10^3/uL Absolute Nucleated RBC 0.00 x10^3/uL Nucleated RBC % 0.0 /100WBC Blood Type O POSITIVE Antibody Screen NEGATIVE
[2021-09-26] MEDS: ACETAMINOPHEN 500 MG TABLET PO SCH ×2 (08:48→17:02)
[2021-09-26] MEDS: DOCUSATE SODIUM 100 MG CAPSULE PO PRN ×2 (08:48→21:40)
[2021-09-26] MEDS: CITALOPRAM 10 MG TABLET PO SCH (08:51)
[2021-09-27] MEDS: IBUPROFEN 600 MG TABLET PO SCH ×2 (00:36→09:05)
[2021-09-27] MEDS: ACETAMINOPHEN 500 MG TABLET PO SCH ×2 (00:36→09:05)
--- NOTE | 2021-09-27 08:23 | DISCHARGE SUMMARY ---
Discharge Summary Admit Date: 09/25/21 Discharge Date: 09/27/21 Discharging Provider: Jono Pace MD Code Status: Attempt Resuscitation Condition at Discharge: Good Discharge Disposition: 01 Home, Self Care - DIAGNOSES Admission Diagnoses: Term labor 37 weeks gestation IUGR Anxiety Discharge Diagnoses with Status of Each Condition: Term labor: Delivered 37 weeks gestation: Delivered IUGR Anxiety: Stable Small for gestational age - HPI History of Present Illness: Subjective Patient reports she is doing well. Lochia appropriate. Denies heavy bleeding. Ambulating. Pelvic and abdominal pain well-controlled. Tolerating oral intake. Diet: Regular. Voiding without difficulty. Passing flatus. . Patient is bonding with baby in room Breast feeding going well. Denies feeling lightheaded, dizzy or excessively fatigued. Objective General: Alert, oriented, no apparent distress. Cardiovascular: Regular rate. Regular rhythm. Lungs: No increased work of breathing. Abdomen: Uterus firm. Below umbilicus. No guarding or rebound. - HOSPITAL COURSE Hospital Course: Patient was a 31-year-old G3, P2 at 37 weeks 3 days gestation who presented by EMS with rupture of membranes and delivered shortly upon arrival to the hospital. Delivery was precipitous and uncomplicated. course was unremarkable although her was known to be IUGR and was small for gestational age at . course was uncomplicated and they were discharged on day 2. - ALLERGIES Allergies/Adverse Reactions: Allergies Allergy/AdvReac Type Severity Reaction Status Date / Time No Known Drug Allergies Allergy Verified 08/13/21 19:56 - MEDICATIONS Home Medications: Ambulatory Orders Medication Instructions Recorded Confirmed metroNIDAZOLE [Flagyl] 500 mg PO BID 7 Days #14 tablet 08/13/21 Acetaminophen [Acetaminophen Extra 1,000 mg PO Q8H PRN #60 tablet 09/26/21 Strength] Docusate Sodium 100Mg Capsule 100 - 200 mg PO BID PRN #60 cap 09/26/21 [Colace 100Mg Capsule] Ibuprofen [Motrin] 600 mg PO Q6H PRN #30 tab 09/26/21 - LABS Result Diagrams: 09/25/21 23:04 - FOLLOW UP Follow Up: Follow-up in 1 week with Kathleen Pope MD - TIME SPENT Time Spent in Discharge (Minutes): 20
[2021-09-27 08:33] VITALS: BP 126/74
[2021-09-27] MEDS: CITALOPRAM 10 MG TABLET PO SCH (09:04)
[2021-09-27] MEDS: DOCUSATE SODIUM 100 MG CAPSULE PO PRN (09:05)
--- NOTE | 2021-09-27 10:34 | Labor Flowsheet ---
Labor Flowsheet Datetime Report Generated by CPN: 09/27/2021 10:34 Datetime: 09/27/2021 08:24 VITAL SIGNS NBP Sys/Hilda/Mean (mmHg): 126 : 74 : 87 Pulse: 97 Datetime: 09/26/2021 21:30 SpO2 (%): 99 Datetime: 09/25/2021 23:32 Respirations: 16 Datetime: 09/25/2021 23:06 PAIN Pain Relief Measures: Pain Medication Given Datetime: 09/25/2021 22:16 Temperature (C): 36.6 Temperature Route: Oral Datetime: 09/25/2021 22:15 Stage of : Recovery Datetime: 09/25/2021 22:10 COMMUNICATION LaborFlag: OB Triage
== END 2021-09-27 10:30 | disposition home or self-care (01) | DRG 807 ==
LOC: WFO 21:51 → FBP 21:52
PROVIDERS: ADMIT Obstetrics & Gynecology; ATTEND Obstetrics & Gynecology
PROC: 10E0XZZ Delivery of Products of Conception, External Approach (ICD-10-PCS; principal; 2021-09-25)
DX: O62.3 Precipitate labor (principal); Z37.0 Single live birth; O70.0 First degree perineal laceration during delivery; O36.5930 Maternal care for other known or suspected poor fetal growth, third trimester, not applicable or unspecified; O99.344 Other mental disorders complicating childbirth; F41.9 Anxiety disorder, unspecified; O69.2XX0 Labor and delivery complicated by other cord entanglement, with compression, not applicable or unspecified; Z3A.37 37 weeks gestation of pregnancy
CPT/HCPCS: 85025; 86850; 86900; 86901; 99215; A9270